=== PATIENT | male | born 1975 | race Caucasian/White ===

== ENCOUNTER 2022-09-16 13:01 | Emergency (ER) | payer OTHER, SELFPAY ==
[2022-09-16 13:01] VITALS: BP 114/87; PULSE 88; RESP 16; TEMP 36.7; O2SAT 100; BMI 25.7
--- NOTE | 2022-09-16 13:40 | CT_ITS ---
STUDY: CT BRAIN WITHOUT CONTRAST REASON FOR EXAM: Male, 47 years old. Head injury due to a fall. No loss of consciousness. Dizziness and nausea. RADIATION DOSAGE (If Supplied By Facility): CTDIvol = ( 44.99 ) mGy, DLP = ( 812.98 ) mGycm TECHNIQUE: Transaxial CT imaging of the brain was performed without administration of intravenous contrast material. Individualized dose optimization techniques were used for this CT. COMPARISON: No relevant priors. FINDINGS: Normal soft tissue structures. Normal calvarium. Normal size ventricles and extra-axial spaces for the patient''s age. Normal white matter tracts of the cerebral hemispheres. Normal basal ganglia and thalami. Normal brainstem. Normal cerebellum. There is no intracranial hemorrhage. There are no findings of an acute ischemic infarction. There is a 1.3 cm retention cyst or polyp in the inferior aspect of the right maxillary sinus. CT/Brain/Head without Contrast IMPRESSION: Normal unenhanced CT scan of the brain. Electronically Signed: Mitch Meadows MD at 14:10 EST ,
--- NOTE | 2022-09-16 14:33 | EDS_ITS ---
HPI History of Present Illness Chief Complaint: Head Injury Informant: patient Onset/Context/Timing Onset: Days (2 days ago) Mechanism/Context: Blunt Injury Quality of Pain: Dull Location: Right side of head Worsened by: Bright lights Relieved by: Nothing Associated Symptoms Associated Symptoms: Negative for Parasthesias, Weakness, Loss of function, Inability to ambulate, Loss of consciousness or Amnesia Narrative Narrative: Patient presents with head injury that occurred 2 days ago. Patient states he stood up and hit his head on a window air conditioner. Patient denies any loss of consciousness. Patient admits to some persistent dizziness. Patient states he has some pain in his head that is worse with light. Patient states he feels lightheaded like he might pass out. Patient denies any spinning sensation. Patient denies any paresthesias or weakness. Patient admits to some mild nausea but denies any vomiting. [facility] Medical History (Updated 09/16/22 @ 14:[address] Jam Mahmood DO) Anxiety Depression Schizophrenia Allergy/AdvReac Type Severity Reaction Status Date / Time acetaminophen AdvReac Other Verified 09/16/22 13:03 [From Darvocet-N] propoxyphene AdvReac Other Verified 09/16/22 13:03 [From Darvocet-N] Surgical History (Updated 09/16/22 @ 14:[address] Jam Mahmood DO) History of kidney surgery Social History Smoking Status: Current every day smoker tobacco type: e-cigarettes ROS ROS ED Constitutional Constitutional ED: Denies chills or fever(s) Eyes Eyes: Denies blurry vision or change in vision ENT ENT ED: Denies rhinorrhea or sore throat Cardiovascular Cardiovascular: Denies chest pain or palpitations Respiratory/Chest Respiratory/Chest: Denies cough or dyspnea Gastrointestinal Gastrointestinal: Reports nausea; Denies vomiting Genitourinary Genitourinary ED: Denies dysuria or hematuria Musculoskeletal Musculoskeletal: Denies back pain or neck pain Integumentary Denies abscess or rash Neurologic Neurologic: Reports headache(s); Denies weakness Allergic/Immunologic Allergic/Immunologic ED: Denies mouth swelling or urticaria EXAM Physical Exam Const Vital Signs: 09/16/22 13:01 09/16/22 13:22 Temperature 98.1 F Temperature Source Temporal Pulse Rate 88 Respiratory Rate 16 Respiratory Effort Normal Non-Labored Respiratory Pattern Normal Blood Pressure 114/87 H Blood Pressure Mean 96 Pulse Ox 100 Oxygen Delivery Method Room Air Positive well nourished and well developed General Appearance ED: well developed and NAD HEENT Reports moist mucous membranes HEENT Narrative: There is a superficial abrasion over the right parietal area. There is no active bleeding noted. There is mild tenderness of the right parietal and occipital areas. There is no bony crepitance or step-off. There is no edema or ecchymosis noted. tenderness Neck supple and no JVD Resp normal respiratory effort and clear to auscultation bilaterally Cardio regular rate, regular rhythm and no murmurs GI normal to inspection, nondistended, normoactive bowel sounds and non-tender Palpation: soft Extremity normal to inspection General Extremety ED: Negative for edema or tenderness General Extremity: Negative for edema Neuro oriented x3, CN's II-XII intact bilaterally and no sensory deficits noted Sensorium / Orientation: alert Motor Exam: strength 5/5 throughout Psych mental status grossly normal Skin no rashes or lesions noted MDM MDM MDM Narrative Medical decision making narrative: Differential diagnosis includes closed head injury, intracranial bleeding, and concussion. CT scan of the brain will be obtained to assess for intracranial bleeding. Radiography Diagnostic Testing: Clinical Impression(s) from Imaging Studies Brain CT 09/16/22 13:40 IMPRESSION: Normal unenhanced CT scan of the brain. Electronically Signed: Mitch Meadows MD at 14:10 EST , CT scan of the brain was obtained. There is no acute intracranial abnormality. This was interpreted by the radiologist and was also independently reviewed by myself. Treatment and Re-Evaluation Narrative: Patient was feeling better on reevaluation. Patient was advised of his findings. Patient was instructed to rest in a dark quiet room. Patient was instructed to drink plenty of fluids. Patient was instructed to limit his screen time with TVs and computers. Patient was instructed to follow-up with his primary care physician in 5 to 7 days. Patient understood and was agreeable with this plan. All questions were answered. Discharge Plan Triage Chief Complaint: Head Injury ED Provider: Jam Mahmood Dx/Rx/DC Orders Clinical Impression: Closed head injury, Nicotine use disorder Instructions: ED Head Injury (Adult) Primary Care Provider: Junito Gong Referrals: Junito Gong MD [Primary Care Provider] - 5-7 Days Disposition Disposition: Home, Self Care
== END 2022-09-16 14:56 | disposition home or self-care (01) ==
PROVIDERS: Emergency Provider Emergency Medicine; PCP Family Medicine; Visit Provider Emergency Medicine
DX: S09.90XA Unspecified injury of head, initial encounter (principal); R11.0 Nausea; F17.290 Nicotine dependence, other tobacco product, uncomplicated; W22.8XXA Striking against or struck by other objects, initial encounter
CPT/HCPCS: 70450; 99282

== ENCOUNTER 2022-09-30 11:41 | Emergency (ER) | payer OTHER, SELFPAY ==
[2022-09-30 11:41] VITALS: BP 97/87; PULSE 70; RESP 16; TEMP 36.6; O2SAT 100; BMI 25.1
--- NOTE | 2022-09-30 12:12 | CT_ITS ---
STUDY: CT BRAIN WITHOUT CONTRAST REASON FOR EXAM: Male, 47 years old. Headache, injury. Dizziness and nausea since head trauma several weeks ago. RADIATION DOSAGE (If Supplied By Facility): CTDIvol = ( 44.99 ) mGy, DLP = ( 812.98 ) mGycm TECHNIQUE: Transaxial CT imaging of the brain was performed without administration of intravenous contrast material. Individualized dose optimization techniques were used for this CT. COMPARISON: Comparison is made with prior study September 16, 2022. FINDINGS: Normal soft tissue structures. Normal calvarium. Normal size ventricles and extra-axial spaces for the patient''s age. Normal white matter tracts of the cerebral hemispheres. Normal basal ganglia and thalami. Normal brainstem. Normal cerebellum. There is no intracranial hemorrhage. There are no findings of an acute ischemic infarction. Normal visualized paranasal sinuses. CT/Brain/Head without Contrast IMPRESSION: Normal unenhanced CT scan of the brain. Electronically Signed: Mitch Meadows MD at 13:22 EST ,
[2022-09-30 12:26] VITALS: BP 117/85; PULSE 64; RESP 17; O2SAT 96
--- NOTE | 2022-09-30 12:27 | RAD_ITS ---
STUDY: X-RAY CHEST REASON FOR EXAM: Male, 47 years old. Weakness, dizziness and nausea. TECHNIQUE: Single AP portable view of the chest. COMPARISON: None. FINDINGS: EKG electrodes are seen. The lungs are clear and expanded. There is no demonstrated pleural abnormality. Normal size heart. Normal mediastinum and maira. Normal visualized pulmonary arteries. Normal visualized aortic arch and descending thoracic aorta. Normal visualized thoracic spine. Normal visualized ribs, clavicles, and shoulders. There is no demonstrated abnormality of the visualized soft tissue structures of the upper abdomen. RAD/Chest 1 View (Portable) IMPRESSION: Normal x-ray examination of the chest. Electronically Signed: Mitch Meadows MD at 12:51 EST ,
[2022-09-30] MEDS: 0.9% Normal Saline 1,000 ML 1000 ML IV (12:31)
[2022-09-30 13:12] LABS: ALB/GLOB Ratio 1.3 RATIO (0.9-2.4); AST(SGOT) 20 U/L (15-37); Alanine Aminotransfer ALT/SGPT 27 U/L (16-61); Albumin, Serum 3.7 g/dL (3.2-5.0); Alkaline Phosphatase 73 U/L (45-117); Anion Gap 8 (5-15); BUN 7 mg/dL (7-18); BUN/Creat Ratio 8.3 RATIO (10-20); Calcium,Total 9.1 mg/dL (8.5-10.1); Chloride 108 mmol/L (98-107); Creatinine, Serum 0.85 mg/dL (0.70-1.30); EST Glomerular Filtration Rate 102 mL/min (>60); Est Glom Filt Rate - Afr Amer 123 mL/min (>60); Estimated Creatinine Clearance 111.97 ml/min; Globulin 2.8 g/dL (2.2-4.2); Glucose 95 mg/dL (74-106); Protein, Total 6.5 g/dL (6.4-8.2); Sodium Level 139 mmol/L (136-145); Troponin-I HS 4 pg/mL (3.0-78.0)
--- NOTE | 2022-09-30 14:14 | EDS_ITS ---
HPI History of Present Illness Chief Complaint: Dizziness Informant: patient Narrative Narrative: Patient is a 47-year-old male with history of bipolar disorder, schizoaffective disorder and tremor (on propanolol) presenting with dizzy spells. Patient states on , September 13, patient was cleaning something on his patio and when he had bent down and went to stand up he hit the back of his head on an AC unit. He had no loss of conscious. He was dizzy and nauseous at this time. He is not on any blood thinners. He was evaluated in the ER and discharged home. Since then he continues to have pain in the back of his head and also has been having intermittent episodes of dizzy spells. He describes as feeling lightheaded and nauseous. These occur for approximately 30 minutes at a time. Currently is not having these episodes. Does report he also has reflux and pretty severe anxiety so is not sure how this is affecting his symptoms. Denies any vision changes. Denies any new numbness or tingling but notes that when he gets his episodes sometimes his hands and feet will get numb. PFSH PFS Medical History Anxiety Depression Schizophrenia Home Medications propranolol 20 mg tablet mg 09/30/22 [History Last Taken Unknown] Allergy/AdvReac Type Severity Reaction Status Date / Time propoxyphene AdvReac Other Verified 09/30/22 11:43 [From Jessica] Surgical History History of kidney surgery Social History Smoking Status: Current every day smoker tobacco type: e-cigarettes ROS ROS ED Constitutional Constitutional ED: Denies chills or fever(s) Eyes Eyes: Denies change in vision or diplopia ENT ENT ED: Denies rhinorrhea or sore throat Cardiovascular Cardiovascular: Reports chest pain, palpitations and racing heartbeat Respiratory/Chest Respiratory/Chest: Denies cough or dyspnea Gastrointestinal Gastrointestinal: Reports nausea; Denies abdominal pain or vomiting Musculoskeletal Musculoskeletal: Denies arthralgias or myalgias Integumentary Denies rash Neurologic Neurologic: Reports headache(s); Denies paresthesias or weakness Psychiatric Psychiatric: Reports anxiety; Denies suicidal ideation or suicidal thoughts Hematologic/Lymphatic Hematologic/Lymphatic: Denies easy bleeding or easy bruising EXAM Physical Exam Const Vital Signs: 09/30/22 11:41 09/30/22 11:52 09/30/22 12:26 Temperature 98 F Temperature Source Temporal Pulse Rate 70 64 Pulse Rate [Lying] Pulse Rate [Sitting (for 1 minute prior to obtaining)] Pulse Rate [Standing (for 1 minute prior to obtaining)] Respiratory Rate 16 17 Respiratory Effort Normal Non-Labored Blood Pressure 97/87 H 117/85 H Blood Pressure [Lying] Blood Pressure [Sitting (for 1 minute prior to obtaining)] Blood Pressure [Standing (for 1 minute prior to obtaining)] Blood Pressure Mean 90 95 Blood Pressure Mean [Lying] Blood Pressure Mean [Sitting (for 1 minute prior to obtaining)] Blood Pressure Mean [Standing (for 1 minute prior to obtaining)] Pulse Ox 100 96 Oxygen Delivery Method Room Air Room Air 09/30/22 14:33 09/30/22 14:38 Temperature Temperature Source Pulse Rate 64 Pulse Rate [Lying] 62 Pulse Rate [Sitting (for 1 minute prior to obtaining)] 63 Pulse Rate [Standing (for 1 minute prior to obtaining)] 76 Respiratory Rate 16 Respiratory Effort Blood Pressure 107/76 Blood Pressure [Lying] 121/89 H Blood Pressure [Sitting (for 1 minute prior to obtaining)] 113/73 Blood Pressure [Standing (for 1 minute prior to obtaining)] 107/76 Blood Pressure Mean 86 Blood Pressure Mean [Lying] 99 Blood Pressure Mean [Sitting (for 1 minute prior to obtaining)] 86 Blood Pressure Mean [Standing (for 1 minute prior to obtaining)] 86 Pulse Ox 99 Oxygen Delivery Method Room Air Positive well nourished and well developed General Appearance ED: well developed and NAD HEENT Reports moist mucous membranes Negative for trauma or tenderness Eyes PERRL and EOMs intact bilaterally Eyes Narrative: Nystagmus Neck supple and no JVD Neck Narrative: No meningeal signs Chest Wall inspection of chest normal and palpation of chest normal Resp normal respiratory effort and clear to auscultation bilaterally Cardio regular rate, regular rhythm and no murmurs GI normal to inspection, nondistended, normoactive bowel sounds and non-tender Extremity normal to inspection Extremity Narrative: No obvious deformity or injuries General Extremety ED: Negative for edema or tenderness General Extremity: Negative for edema Neuro oriented x3, CN's II-XII intact bilaterally and no sensory deficits noted Neuro Narrative: Normal coordination. Normal [id number], normal [id number] mild tremor more pronounced on the right than the left. Resolves on subsequent exams. Sensorium / Orientation: alert Motor Exam: strength 5/5 throughout Psych mental status grossly normal Mood & Affect: anxious Skin no rashes or lesions noted and no wounds MDM MDM MDM Narrative Medical decision making narrative: Patient is evaluated for episodes of dizziness, nausea and while in the ER does develop some chest pain. EKG and troponin are normal. I suspect really all of his symptoms are associate with his anxiety and reflux. Patient feels that that is what his symptoms are from as well. CT of his brain is obtained however to rule out any delayed bleed from his head trauma a month ago. EKG and telemetry does not show any arrhythmia while in the room. There are no prior labs available for comparison. Patient has a mild leukopenia and anemia but I do not think this is the cause of his symptoms. No significant electrolyte abnormalities. High since he troponin is 4. Patient is PE RC negative I do not suspect pulmonary emboli as a cause of his symptoms. It is possible he could have a concussion that is causing these episodes of dizziness and lightheadedness however more likely things are consistent with panic attacks which she does have a history of. While patient does have significant psychiatric history he feels like overall he is well controlled and will follow- up outpatient with a psychiatrist. At this time I do not think he requires emergent psychiatric evaluation. Patient is offered Maalox in the ER for his epigastric chest pain however he declines. On repeat evaluation he is now feeling better and all symptoms have resolved. Patient's orthostatics are normal in the ER received a liter of IV fluids. Patient courage to follow-up with his primary care doctor for further cardiac and GI evaluation however this time I do not think he requires admission to the hospital for further inpatient cardiac/GI evaluation for symptoms. History & Record Review Additional record(s) reviewed:: Other (Prior CT of the brain shows no acute intracranial process) Lab Data Attestation: I reviewed the patient's lab results. Labs: Laboratory Results - last 24 hr 09/30/22 09/30/22 12:40 14:06 WBC 3.4 L RBC 4.00 L Hgb 12.7 L Hct 37.2 L MCV 93.0 MCH 31.8 MCHC 34.1 RDW Std Deviation 40.8 RDW Coeff of Yung 11.9 Plt Count 146 L MPV 12.0 Immature Gran % (Auto) 0.300 Neut % (Auto) 61.6 Lymph % (Auto) 28.6 [place] % (Auto) 9.5 Eos % (Auto) 0.0 Baso % (Auto) 0.0 Absolute Neuts (auto) 2.1 Absolute Lymphs (auto) 0.96 Nucleated RBC % 0 Sodium 139 Potassium 4.0 Chloride 108 H Carbon Dioxide 23.0 Anion Gap 8 BUN 7 Creatinine 0.85 Estim Creat Clear Calc 111.97 Est GFR (MDRD) Af Amer 123 Est GFR (MDRD) Non-Af 102 BUN/Creatinine Ratio 8.3 L Glucose 95 Calcium 9.1 Total Bilirubin 0.50 AST 20 ALT 27 Alkaline Phosphatase 73 Troponin I High Sens 4 Total Protein 6.5 Albumin 3.7 Globulin 2.8 Albumin/Globulin Ratio 1.3 Radiography Diagnostic Testing: Clinical Impression(s) from Imaging Studies Brain CT 09/30/22 12:12 IMPRESSION: Normal unenhanced CT scan of the brain. Electronically Signed: Mitch Meadows MD at 13:22 EST , Chest X-Ray 09/30/22 12:27 IMPRESSION: Normal x-ray examination of the chest. Electronically Signed: Mitch Meadows MD at 12:51 EST , Rhythm Strip Rhythm Strip: Sinus Rhythm Rate: 63 Ectopy: None EKG Initial EKG: Attestation: I personally reviewed and interpreted this EKG as follows: Interpretation: Sinus Rhythm Comments: Normal sinus rhythm at a rate of 63 bpm Normal axis Normal intervals Right bundle branch block Normal ST segments No prior EKG available for comparison Discharge Plan Triage Chief Complaint: Dizziness ED Provider: Melissa Herrera Dx/Rx/DC Orders Instructions: ED Concussion, ED Chest Pain, Uncertain Cause, ED Dizziness, Unc ertain Cause Prescriptions: No Action propranolol 20 mg tablet Label Comments: take 1 tablet by mouth twice a day Primary Care Provider: Junito Gong Referrals: Junito Gong MD [Primary Care Provider] - Activity Restrictions/Additional Instructions: Your work up was normal today with no signs of bleeding in the brain, heart attack or infection. Please follow up with your primary care doctor and psychiatrist. Disposition Disposition: Home, Self Care Discharge Date/Time: 09/30/22 15:38
[2022-09-30 14:19] LABS: Absolute Lymphocyte Count 0.96 X10^3/uL (0.83-4.51); Absolute Neutrophil Count 2.1 X10^3/uL (2.0-7.7); Hematocrit 37.2 % (40-54); Hemoglobin 12.7 g/dL (13.0-16.5); Lymphocyte # 0.96 X10^3/ul (0.83-4.51); Lymphocyte % 28.6 % (19-41); Mean Corp Hgb Conc 34.1 g/dL (32-36); Mean Corpuscular Hgb 31.8 pg (27.0-32.0); Monocyte# 0.32 X10^3/uL; Monocyte% 9.5 % (0-10); NRBC Flagged by Analyzer 0 % (0-5); Neutrophil # 2.07 X10^3/uL (2.7-7.7); Neutrophil % 61.6 % (47-70); Platelet Count 146 K/mm3 (150-450); RBC Distribution Width CV 11.9 % (11.6-14.6); RBC Distribution Width SD 40.8 fl (35.1-43.9); White Blood Count 3.4 K/mm3 (4.4-11.0)
[2022-09-30 14:33] VITALS: BP 107/76; BP 113/73; BP 121/89; PULSE 62; PULSE 63; PULSE 76
[2022-09-30 14:38] VITALS: BP 107/76; PULSE 64; RESP 16; O2SAT 99
== END 2022-09-30 15:38 | disposition home or self-care (01) ==
PROVIDERS: Emergency Provider Emergency Medicine; PCP Family Medicine; Visit Provider Emergency Medicine
DX: R42 Dizziness and giddiness (principal); R51.9 Headache, unspecified; F17.290 Nicotine dependence, other tobacco product, uncomplicated; F41.9 Anxiety disorder, unspecified; R10.13 Epigastric pain
CPT/HCPCS: 70450; 71045; 80053; 84484; 85025; 93005; 96360; 99285; J7030; A4216